=== PATIENT | male | born 2000 | race Caucasian/White ===

== ENCOUNTER 2022-07-04 03:49 | Emergency (ER) | payer OTHER ==
[~2022-07-04] VITALS: Ht 182.9 cm; Wt 125.0 kg
[2022-07-04] MEDS ORDERED: ACETAMINOPHEN 500 MG TABLET PO ONE (04:00)
[2022-07-04] MEDS ORDERED: PERTUSS(ACELL),DIPH,TET VAC/PF 0.5 ML SYRINGE IM. ONE (04:00)
[2022-07-04] MEDS ORDERED: BACITRACIN 28 GM OINTMENT TP ONE (04:00)
[2022-07-04] MEDS ORDERED: LIDOCAINE 1%/EPI 1:200,000/PF 30 ML VIAL SQ ONE (04:00)
[2022-07-04 04:56] VITALS: BP 124/72
== END 2022-07-04 18:53 | disposition home or self-care (01) ==
LOC: EMS 03:50
DX: S81.011A Laceration without foreign body, right knee, initial encounter (principal); W19.XXXA Unspecified fall, initial encounter; Y93.I9 Activity, other involving external motion; Y92.89 Other specified places as the place of occurrence of the external cause; Y99.8 Other external cause status; L98.8 Other specified disorders of the skin and subcutaneous tissue; Z98.890 Other specified postprocedural states
CPT/HCPCS: 99283; 73564; 90715; 90471; 12002; J3490